=== PATIENT | male | born 1990 | race Caucasian/White ===

== ENCOUNTER 2020-05-11 20:10 | Emergency (ER) | payer OTHER ==
[~2020-05-11] VITALS: Ht 175.3 cm; Wt 61.0 kg
--- NOTE | 2020-05-11 20:17 | NUR ---
Pt here for jim in his eye. While waiting for triage jim came out. Pt states he does not need to be seen.
[2020-05-11 20:49] VITALS: BP 130/94
[2020-05-11] MEDS ORDERED: proparacaine 0.5% ophthalmic drops 15ml EACHEYE ONE (21:10)
[2020-05-11] MEDS ORDERED: ERYT1OIN6 LEFTEYE (21:53)
[2020-05-11] MEDS ORDERED: erythromycin ophthalmic ointment 1gm tube LEFTEYE ONE (21:55)
== END 2020-05-11 22:18 | disposition home or self-care (01) ==
LOC: ER 20:12
DX: S05.02XA Injury of conjunctiva and corneal abrasion without foreign body, left eye, initial encounter (principal); Z79.2 Long term (current) use of antibiotics; X58.XXXA Exposure to other specified factors, initial encounter; Y93.89 Activity, other specified; Y92.89 Other specified places as the place of occurrence of the external cause; Y99.0 Civilian activity done for income or pay
CPT/HCPCS: 65205; 65220; 99284